=== PATIENT | male | born 1990 | race Caucasian/White ===

== ENCOUNTER 2017-11-24 18:29 | Inpatient (IN) | payer OTHER, SELFPAY ==
[2017-11-24] MEDS ORDERED: Morphine 4 MG/ML VIAL ONE ×2 (18:48→21:45)
[2017-11-24] MEDS ORDERED: Ondansetron HCl/PF 4 MG/2 ML Vial ONE ×2 (18:49→20:47)
[2017-11-24] MEDS ORDERED: Ketorolac Tromethamine 30 MG/ML VIAL ONE (18:49)
[2017-11-24 19:15] LABS: Hemoglobin 13.3 g/dL (14.0-18.0); Mean Corpuscular HGB CONC 36.2 g/dL (32.0-36.0); Mean Corpuscular Hemoglobin 31.6 pg (27.0-31.0); Mean Corpuscular Volume 87.4 fL (78.0-98.0); Mean Platelet Volume 6.9 fL (7.4-10.4); Platelet Count 237 thou/uL (130-400); Red Blood Cell (RBC) Count 4.19 mill/uL (4.70-6.10); White Blood Cell (WBC) Count 2.9 thou/uL (4.8-10.8)
[2017-11-24 19:34] LABS: ALT (SGPT) 19 U/L (8-55); AST (SGOT) 30 U/L (5-34); Albumin 4.4 g/dL (3.5-5.0); Alkaline Phosphatase 68 U/L (40-150); Anion Gap 17 mmol/L (10-20); BUN (Urea Nitrogen) 14 mg/dL (8.9-20.6); Bilirubin, Total 1.3 mg/dL (0.2-1.2); CK (CPK) 311 U/L (30-200); Calc. Creatinine Clearance 0 mL/min (70-130); Calcium 9.5 mg/dL (7.8-10.44); Carbon Dioxide 19 mmol/L (22-29); Chloride 105 mmol/L (98-107); Estimated GFR-MDRD 84; Globulin 2.4 g/dL (2.4-3.5); Glucose 89 mg/dL (70-105); Potassium 3.5 mmol/L (3.5-5.1); Protein, Total 6.8 g/dL (6.0-8.3); Sodium 137 mmol/L (136-145)
[2017-11-24 19:44] LABS: Band 4 % (5-11); Lymphocytes 5 % (21-51); MDiff Complete? YES; Monocytes 3 % (0-10); Neutrophil 88 % (42-75); PLT Morphology Comment Appears Adequate
[2017-11-24 21:34] LABS: Bilirubin Negative (Negative); Blood, Urine Negative (Negative); Clarity CLEAR (Clear); Glucose, Urine (Dipstick) Negative (Negative); Leukocyte Negative (Negative); Nitrite Negative (Negative); Protein, Urine (Dipstick) Negative (Neg-Trace); Urobilinogen 0.2 mg/dL (0.2-1.0); pH, Urine 5.5 (5.0-9.0)
--- NOTE | 2017-11-24 21:41 | RAD ---
CHEST ONE VIEW: HISTORY: Fever. COMPARISON: 04/17/2013 FINDINGS: Normal cardiac silhouette. Pulmonary vessels and hilum are normal. Costophrenic angles are clear. No mass. No consolidation. No pneumothorax or osseous abnormalities. IMPRESSION: No acute cardiopulmonary process. POS: [facility]
[2017-11-24 21:54] LABS: Amphetamine Detected (NotDetected); Barbiturates Screen Not Detected (NotDetected); Benzodiazepine Screen Detected (NotDetected); Cocaine Metabolite Screen Not Detected (NotDetected); Medtox Control Line Valid? VALID (VALID); Medtox Reader # READER 1; Methadone Not Detected (NotDetected); Methamphetamine Not Detected (NotDetected); Opiate Screen Detected (NotDetected); Oxycodone Screen Not Detected (NotDetected); Phencyclidine (PCP) Not Detected (NotDetected); THC/Cannabinoid Screen Not Detected (NotDetected); Tricyclic Screen Not Detected (NotDetected)
--- NOTE | 2017-11-24 22:05 | CT ---
CT ABDOMEN AND PELVIS WITHOUT CONTRAST: HISTORY: Flank pain. Fever. COMPARISON: CT abdomen and pelvis from 2012. FINDINGS: The lung bases are clear. No pericardial effusion. The appendix is visualized and has some inspissated debris. No evidence of appendicitis. The aortoiliac contour is nonaneurysmal. No nephroureterolithiasis or hydroureteronephrosis. No sec ondary evidence of a recently passed stone. No free intraperitoneal gas or fluid. The spleen is unremarkable. The pancreas is unremarkable, given its noncontrast appearance. No ronald opathy. No acute osseous abnormality. The skeleton is unremarkable. There appear to be bilateral clips halima g the spermatic cords. IMPRESSION: 1. No nephroureterolithiasis or hydroureteronephrosis. No secondary evidence of any recently passed stone. 2. Inspissated debris within the appendix, which is otherwise normal. No evidence of appendicitis. 3. No acute inflammatory process within the abdomen or pelvis. POS: [facility]
[2017-11-24 22:10] LABS: Lactic Acid 2.2 mmol/L (0.5-2.2)
[2017-11-24] MEDS ORDERED: Acetaminophen 500 MG TAB ONE (22:36)
[2017-11-24 23:19] LABS: Lactic Acid 2.7 mmol/L (0.5-2.2)
[2017-11-24] MEDS ORDERED: Piperacillin/Tazobactam 4.5 GM VIAL ONE (23:32)
[2017-11-24] MEDS ORDERED: Fentanyl 100 MCG/2 ML VIAL ONE (23:35)
[2017-11-25] MEDS ORDERED: Ondansetron HCl/PF 4 MG/2 ML Vial IVP PRN (01:00)
[2017-11-25] MEDS ORDERED: Ondansetron ODT 4 MG TAB SL PRN (01:00)
[2017-11-25 01:20] VITALS: BMI 24.8
[2017-11-25] MEDS: Acetaminophen 325 MG TAB PO PRN ×2 (02:27→07:35)
[2017-11-25] MEDS: Sodium Chloride 0.9% 1,000 ML IV SCH ×2 (02:28→08:31)
[2017-11-25] MEDS: Piperacillin/Tazobactam 3.375 GM in Sodium Chloride 0.9% 100 ML IVPB SCH ×3 (05:45→18:19)
[2017-11-25] MEDS: Vancomycin HCl 1.5 GM in Sodium Chloride 0.9% 250 ML 300 ML IVPB SCH ×2 (08:30→16:12)
[2017-11-25] MEDS: Ibuprofen 600 MG TAB PO PRN ×2 (09:54→16:12)
[2017-11-25 12:27] LABS: HIV (1/2) Antibody/Antigen Non-Reactive (NonReactive); HIV 1/2 INDEX 0.17 S/CO (<1.00)
--- NOTE | 2017-11-25 16:33 | HP ---
CHIEF COMPLAINT: Abdominal pain, fever. HISTORY OF PRESENT ILLNESS: The patient reported having some urethral type discharge starting severa l years ago. This has persisted and ultimately became significantly worse a couple of weeks ago. Du ring that time, he also started experiencing some fevers and chills. He reports that his pain was in creased with constipation and improved with more frequent intercourse. The patient is having signifi cant abdominal pain, which is in the lower pelvis, now radiating to the back and also in the perineum . The patient denies having unprotected sex other than with his . 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 PAST MEDICAL HISTORY: Notable for asthma, ADHD. PAST SURGICAL HISTORY: Notable for vasectomy. FAMILY HISTORY: Both parents have hypertension and diabetes. SOCIAL HISTORY: Patient uses one can of snuff every 3 days. He also has a history of significant al cohol use, but quit a couple of years ago, now is only intermittent. REVIEW OF SYSTEMS: Notable for those things in the history of present illness. PHYSICAL EXAMINATION: VITAL SIGNS: Temperature 98.4, pulse 103, respirations 20, O2 sat 98% on room air, BP 90/60. GENERAL APPEARANCE: Age appropriate male. He appears generally uncomfortable. He is awake and aler t. HEENT: PERRL. No OP lesions. NECK: Supple and symmetric without lymphadenopathy. CARDIOVASCULAR: Regular rate and rhythm without murmurs. LUNGS: Clear to auscultation bilaterally. ABDOMEN: Soft, nondistended, positive bowel sounds. He is tender throughout the lower abdomen and p fernando. Bladder is not specifically palpable. EXTREMITIES: Warm and dry. GENITOURINARY: The patient has normal external male genitalia. His right testicle is slightly tende r. His digital rectal exam is notable for a very boggy, very tender, somewhat enlarged prostate. LABORATORY DATA: White count 2.9, hemoglobin 13.3, and platelets 237. He has 88% neutrophils, 4% ba nds, and 5% lymphocytes. Chemistry is notable for CO2 of 19, lactic acid 2.4, total bilirubin is 1.3 , BUN 14, creatinine 1.04, CK 311. Urinalysis notable for trace ketones. Urine drug screen positive for opiates, amphetamines and benzodiazepines. Chest x-ray shows no acute cardiopulmonary process. CT abdomen and pelvis reveals no nephroureterolithiasis or hydroureteronephrosis. There is inspissa lay debris within the appendix, otherwise normal. No inflammatory process within the abdomen or pelv is. I discussed the case specifically with the radiologist and there does not appear to be any signi ficant evidence of inflammation or abscess of the prostate. ASSESSMENT AND PLAN: 1. The patient appears to have acute on chronic prostatitis. He has been having urethral discharge now with significant pelvic pain, some bladder outlet obstruction and tender prostate on exam. The p atient is on vancomycin and Zosyn. We will consult Urology. He is requiring intermittent in and out catheterization because of the obstruction. We will check an HIV screen and GC and chlamydia screen . 2. Mild leukopenia. We will check an HIV screen. The patient is not neutropenic. 3. Elevated lactic acid. The patient's blood pressure is borderline. This more likely related to t he pain medications that he has been receiving rather than a true sepsis picture, although he likely technically meets the definition. We will go ahead and give him aggressive hydration as has been sandy mathis, although he is reluctant to receive it because of the bladder obstruction.
[2017-11-25] MEDS ORDERED: diphenhydrAMINE 25 MG CAP PO PRN (19:16)
--- NOTE | 2017-11-26 04:29 | CON ---
DATE OF CONSULTATION: 11/25/2017 REASON FOR CONSULTATION: Urinary retention. HISTORY: Mr. Parry is a 27-year-old gentleman who presented to the emergency room on 11/24/2017 with abdominal pain, difficulty voiding. He was catheterized in the emergency room for 1000 mL of urine. His urologic issues date back to his teenage years. He states that he has had intermittent problem s urinating since that time. He has never required a catheter in the past. He states that his urina ry symptoms had worsened approximately 4 years ago after a vasectomy. He states that approximately o nce a week, he will have acute onset of significant perineal or urethral pain. It will usually last 15 minutes and resolved. He also has intermittent discharge from the urethra. This particularly wor se if he has not had intercourse. He is able to express discharge from the urethra. He denies any g ross hematuria. He has had no prior urologic surgeries. He denies fevers or chills. PAST MEDICAL HISTORY: Asthma, ADHD. ALLERGIES: Vasectomy. 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 He is a nonsmoker, but does use snuff. He drinks alcohol on a social basis. REVIEW OF SYSTEMS: Respiratory: No shortness of breath. Cardiovascular: No chest pain or palpitat ions. Gastrointestinal: Denies chronic constipation, diarrhea. Genitourinary: Please see history of present illness. PHYSICAL EXAMINATION: GENERAL: He is awake, alert, is in no distress at this time. HEENT: Normocephalic, atraumatic. NECK: Supple without masses. CHEST: Clear to auscultation. CARDIOVASCULAR: Regular rate and rhythm. ABDOMEN: Soft, nontender, no palpable masses. Liver and spleen are palpable. No abdominal tenderne ss. GENITOURINARY: No penile lesions seen. Urethral meatus appears normal. No scrotal lesions. Testic les palpably normal bilaterally. DIGITAL RECTAL EXAMINATION: Refused by patient. CATHETERIZATION: Patient is ordered to perform intermittent catheterization drained over 500 mL of u rine. LABORATORY DATA: White blood cell count 2.9, hemoglobin 13.3, hematocrit 36. Chemistry: CO2 of 19, creatinine 1.04. Urinalysis trace ketones, otherwise negative for red cells and white cells. Urine culture negative. CT scan demonstrates normal upper tracts without hydronephrosis or stones. No ev idence of prostatic abscess or other genitourinary abnormalities. IMPRESSION: Mr. Parry is a 27-year-old gentleman with urinary retention. He has no convincing evide nce of prostatitis in that he is afebrile, his urinalysis is clear without red cells or white cells o r bacteria. His white blood cell count is low and not high and his symptoms have been off and on for months. He could have a chronic prostatitis, although I would also suspect at least an abnormal uri nalysis. In any regards, he is in retention and that time I am going to perform intermittent cathete rization. Flomax should be initiated and I am in agreement with antibiotic therapy, especially while he is using intermittent catheterization. RECOMMENDATIONS: 1. Begin Flomax. 2. Intermittent catheterization, and so urinary symptoms are normal. 3. Antibiotic therapy (Cipro or Bactrim) for 6 weeks at the time of discharge.
[2017-11-26 07:38] LABS: Vancomycin, Trough 7.4 ug/mL
[2017-11-26] MEDS: Acetaminophen 325 MG TAB PO PRN ×2 (09:18→16:27)
[2017-11-26] MEDS: Ibuprofen 600 MG TAB PO PRN (17:37)
[2017-11-26 17:40] VITALS: BP 127/82; TEMP 98.5
[2017-11-26] MEDS ORDERED: Tamsulosin HCl 0.4 MG CAP PO SCH (21:00)
[2017-11-27 23:26] LABS: Chlamydia by PCR Not Detected (NotDetected); GC by PCR Not Detected (NotDetected)
== END 2017-11-26 17:50 | disposition home or self-care (01) | DRG 700 ==
LOC: ERS 18:29 → T4-A 11-25 00:48
PROVIDERS: ADMIT Hospitalist; ATTEND Hospitalist
DX: N32.0 Bladder-neck obstruction (principal); N41.1 Chronic prostatitis; D72.819 Decreased white blood cell count, unspecified; Z87.442 Personal history of urinary calculi; F17.290 Nicotine dependence, other tobacco product, uncomplicated; J45.909 Unspecified asthma, uncomplicated; F90.9 Attention-deficit hyperactivity disorder, unspecified type; Z98.52 Vasectomy status; R33.9 Retention of urine, unspecified
CPT/HCPCS: 36415; 51702; 71045; 74176; 80053; 80202; 80306; 81003; 82550; 83605; 85025; 87040; 87086; 87389; 87491; 87591; 93005; 96361; 96365; 96375; 96376; J1885; J1956; J2270; J2405; J2543; J3010; J3370; J7050

== ENCOUNTER 2018-03-22 22:06 | Emergency (ER) | payer SELFPAY ==
[~2018-03-22 22:06] MED LIST: ISOVUE-370 76%-LOCM 1 ML ONE
[2018-03-22] MEDS ORDERED: Acetaminophen 500 MG TAB ONE (22:39)
[2018-03-22] MEDS ORDERED: Ciprofloxacin 500 MG TAB ONE (22:39)
[2018-03-22] MEDS ORDERED: Ibuprofen 800 MG TAB ONE (22:39)
[2018-03-22] MEDS ORDERED: Tamsulosin HCl 0.4 MG CAP PO SCH (22:45)
[2018-03-22 22:51] LABS: Bilirubin Negative (Negative); Blood, Urine Negative (Negative); Clarity CLEAR (Clear); Glucose, Urine (Dipstick) Negative (Negative); Leukocyte Negative (Negative); Nitrite Negative (Negative); Protein, Urine (Dipstick) Negative (Neg-Trace); Specific Gravity, Urine 1.024 (1.002-1.036); Urobilinogen 0.2 mg/dL (0.2-1.0)
[2018-03-22 23:08] LABS: #Eosinphils 0.1 thou/uL (0.0-0.7); #Lymphocytes 0.7 thou/uL (1.20-3.40); #Monocytes 0.5 thou/uL (0.11-0.59); #Neutrophils 7.6 thou/uL (1.40-6.50); %Basophils 0.3 % (0.0-1.0); %Eosinophils 0.8 % (0.0-10.0); %Lymphocytes 7.9 % (21.0-51.0); %Monocytes 5.5 % (0.0-10.0); %Neutrophils 85.5 % (42.0-75.0); Hemoglobin 14.4 g/dL (14.0-18.0); Mean Corpuscular HGB CONC 33.5 g/dL (32.0-36.0); Mean Corpuscular Hemoglobin 30.1 pg (27.0-31.0); Mean Platelet Volume 7.2 fL (7.4-10.4); Platelet Count 234 thou/uL (130-400); RBC Distribution Width 11.2 % (11.5-14.5); Red Blood Cell (RBC) Count 4.77 mill/uL (4.70-6.10); White Blood Cell (WBC) Count 8.9 thou/uL (4.8-10.8)
[2018-03-22] MEDS ORDERED: Ondansetron ODT 4 MG TAB ONE (23:21)
[2018-03-22 23:28] LABS: ALT (SGPT) 13 U/L (8-55); AST (SGOT) 13 U/L (5-34); Albumin 3.9 g/dL (3.5-5.0); Alkaline Phosphatase 74 U/L (40-150); Anion Gap 10 mmol/L (10-20); BUN (Urea Nitrogen) 18 mg/dL (8.9-20.6); Bilirubin, Total 0.3 mg/dL (0.2-1.2); Calc. Creatinine Clearance 0 mL/min (70-130); Calcium 9.1 mg/dL (7.8-10.44); Carbon Dioxide 24 mmol/L (22-29); Chloride 107 mmol/L (98-107); Estimated GFR-MDRD 89; Globulin 2.3 g/dL (2.4-3.5); Glucose 92 mg/dL (70-105); Lipase 33 U/L (8-78); Potassium 3.9 mmol/L (3.5-5.1); Protein, Total 6.2 g/dL (6.0-8.3); Sodium 137 mmol/L (136-145)
--- NOTE | 2018-03-23 08:31 | CT ---
PRELIMINARY REPORT/[facility]/EMERGENTY AFTER-HOURS PROCEDURE CT Abdomen and Pelvis With Intravenous Contrast EXAM DATE/TIME: 03/23/2018 12:04 AM CLINICAL HISTORY: 28 years old, male; Pain; Abdominal pain; Localized; Lower; Patient HX: Er 8; M28 presented to ed C/O abdominal pain, fever, chills, aches, difficulty urinating, and prostate pain. PT reports previous H X of prostatitis a couple months ago and notes that the pain and symptoms are similar. PT denies new sexual partners. PT denies any penile d/c. PT localizes abdominal pain to around his kidneys, but the anterior aspect. PT denies hiv HX TECHNIQUE: Axial computed tomography images of the abdomen and pelvis with intravenous contrast. Coronal reforma tted images were created and reviewed. COMPARISON: No relevant prior studies available. FINDINGS: Lower thorax: No acute findings. ABDOMEN: Liver: Normal. No mass. Gallbladder and bile ducts: Normal. No calcified stones. No ductal dilation. Pancreas: Normal. No ductal dilation. Spleen: Normal. No splenomegaly. Adrenals: Normal. No mass. Kidneys and ureters: Normal. No hydronephrosis. Stomach and bowel: No bowel wall thickening or intestinal obstruction. Appendix: Normal appendix. PELVIS: Bladder: Unremarkable as visualized. Reproductive: Unremarkable as visualized. ABDOMEN and PELVIS: Intraperitoneal space: Normal. No free air. No significant fluid collection. Bones/joints: No acute fracture. No dislocation. Soft tissues: Unremarkable. Vasculature: Normal. No abdominal aortic aneurysm. Lymph nodes: Normal. No enlarged lymph nodes. IMPRESSION: No acute findings. Thank you for allowing us to participate in the care of your patient. Dictated and Authenticated by: Rupert Chacon MD 03/23/2018 12:20 AM Central Time ([place] & [place]) FINAL REPORT CT ABDOMEN AND PELVIS: I agree with the preliminary report given by Dr. Rupert Chacon of [facility]. POS: [facility]
== END 2018-03-23 01:11 | disposition home or self-care (01) ==
LOC: ERS 22:06
DX: N41.9 Inflammatory disease of prostate, unspecified (principal); F41.9 Anxiety disorder, unspecified; F32.9 Major depressive disorder, single episode, unspecified; F17.220 Nicotine dependence, chewing tobacco, uncomplicated; Z79.899 Other long term (current) drug therapy
CPT/HCPCS: 36415; 74177; 80053; 81003; 83690; 85025; 87086; 87804; Q0162

== ENCOUNTER 2018-06-01 14:13 | Observation (INO) | payer SELFPAY ==
[2018-06-01 14:41] LABS: #Basophils 0.1 thou/uL (0.0-0.2); #Eosinphils 0.1 thou/uL (0.0-0.7); #Lymphocytes 2.4 thou/uL (1.20-3.40); #Neutrophils 8.8 thou/uL (1.40-6.50); %Basophils 0.7 % (0.0-1.0); %Eosinophils 0.7 % (0.0-10.0); %Lymphocytes 19.5 % (21.0-51.0); %Monocytes 7.8 % (0.0-10.0); %Neutrophils 71.4 % (42.0-75.0); Mean Corpuscular HGB CONC 32.5 g/dL (32.0-36.0); Mean Corpuscular Hemoglobin 29.7 pg (27.0-31.0); Mean Corpuscular Volume 91.3 fL (78.0-98.0); Mean Platelet Volume 6.8 fL (7.4-10.4); Platelet Count 312 thou/uL (130-400); RBC Distribution Width 11.3 % (11.5-14.5); Red Blood Cell (RBC) Count 5.38 mill/uL (4.70-6.10); White Blood Cell (WBC) Count 12.3 thou/uL (4.8-10.8)
--- NOTE | 2018-06-01 15:06 | RAD ---
PORTABLE CHEST 1 VIEW: Date: 06/01/18 Time: 1434 hours HISTORY: Inability to urinate. Prostatitis. Sepsis. FINDINGS: Comparison made with exam of 11/24/17. The heart size is normal. The lungs are well expanded without focal areas of consolidation, pneumotho rax, or pleural effusions. IMPRESSION: No acute process. POS: [facility]
[2018-06-01 15:08] LABS: ALT (SGPT) 15 U/L (8-55); AST (SGOT) 18 U/L (5-34); Alkaline Phosphatase 71 U/L (40-150); Anion Gap 19 mmol/L (10-20); BUN (Urea Nitrogen) 10 mg/dL (8.9-20.6); Bilirubin, Total 0.4 mg/dL (0.2-1.2); Calc. Creatinine Clearance 0 mL/min (70-130); Calcium 9.6 mg/dL (7.8-10.44); Carbon Dioxide 19 mmol/L (22-29); Chloride 107 mmol/L (98-107); Estimated GFR-MDRD 87; Globulin 2.7 g/dL (2.4-3.5); Glucose 97 mg/dL (70-105); Potassium 3.9 mmol/L (3.5-5.1); Protein, Total 7.7 g/dL (6.0-8.3); Sodium 141 mmol/L (136-145)
[2018-06-01] MEDS ORDERED: Morphine 4 MG/ML VIAL ONE ×2 (15:15→17:18)
[2018-06-01] MEDS ORDERED: Ondansetron PF 4 MG/2 ML Vial ONE (15:15)
[2018-06-01] MEDS ORDERED: Lidocaine 2% PF 100 mg/5 ml Syringe ONE ×2 (15:30→15:34)
[2018-06-01] MEDS ORDERED: Lidocaine 4% Topical Sol 50 ML BOT ONE (15:32)
[2018-06-01] MEDS ORDERED: Lidocaine Viscous Sol 2% 15 ml UD Cup ONE ×3 (15:33→20:55)
[2018-06-01] MEDS ORDERED: cefTRIAXone\\ROCEPHIN 1 GM VIAL ONE (15:58)
[2018-06-01] MEDS ORDERED: Levofloxacin 500 mg/D5W 100 ml Premix Bag ONE (15:58)
[2018-06-01] MEDS ORDERED: cefTRIAXone\\ROCEPHIN 2 GM VIAL ONE (15:59)
[2018-06-01 16:05] LABS: Bilirubin Negative (Negative); Blood, Urine Negative (Negative); Clarity CLEAR (Clear); Glucose, Urine (Dipstick) Negative (Negative); Leukocyte Negative (Negative); Nitrite Negative (Negative); Protein, Urine (Dipstick) Negative (Neg-Trace); Specific Gravity, Urine 1.005 (1.002-1.036); Urobilinogen 0.2 mg/dL (0.2-1.0); pH, Urine 5.5 (5.0-9.0)
[2018-06-01 18:53] LABS: Lactic Acid 2.1 mmol/L (0.5-2.2)
--- NOTE | 2018-06-01 19:05 | CT ---
CT ABDOMEN AND PELVIS NONCONTRAST: INDICATIONS: History of chronic prostatitis with pain, nausea, and weakness. COMPARISON: 03/23/2018 FINDINGS: There is moderate distention of the urinary bladder with a minute focus of intraluminal, dependent ai r. No urolithiasis or hydroureteronephrosis. There is limited evaluation of the solid abdominal org ans, bowel, lymph nodes, and vasculature, on the basis of the noncontrast technique. There are bilat eral metallic clips of the inguinal regions, indicating a prior vasectomy. Correlate for surgical hi story. No lobar consolidation of the imaged lung base. The osseous structures are intact. IMPRESSION: 1. Moderate distention of the urinary bladder. There is a tiny focus of dependent air density withi n the urinary bladder. Correlate for history of recent instrumentation. Otherwise, gas-producing or ganism cannot be excluded. 2. No urolithiasis or hydroureteronephrosis. POS: [facility]
[2018-06-01] MEDS ORDERED: Oxybutynin 5 MG TAB PO SCH (21:00)
[2018-06-01] MEDS ORDERED: Senokot S 8.6-50 MG TAB PO PRN (21:41)
[2018-06-01] MEDS ORDERED: Acetaminophen 325 MG TAB PO PRN (21:41)
[2018-06-01] MEDS ORDERED: Bisacodyl 5 MG TAB PO PRN (21:41)
[2018-06-01] MEDS ORDERED: Sodium Chloride 0.9% 1,000 ML IV SCH (21:45)
[2018-06-01] MEDS ORDERED: Acetaminophen 325 MG TAB ONE (22:13)
[2018-06-01] MEDS ORDERED: B & O PR PRN (22:52)
--- NOTE | 2018-06-01 22:55 | ULT ---
BILATERAL TESTICULAR ULTRASOUND WITH GRAYSCALE AND DOPPLER COLORFLOW IMAGING AND SPECTRAL ANALYSIS: INDICATIONS: Bilateral testicular pain. Evaluate for torsion. FINDINGS: There is appropriate flow demonstrated to each testis, without torsion. No intratesticular mass. Th ere is a mild left hydrocele. There are small epididymal cysts bilaterally. Prominent volume of eac h epididymis, notably at the body and tail region, is documented, which can be seen in the setting of epididymitis. Recommend clinical correlation in this regard. IMPRESSION: 1. No evidence of testicular torsion or intratesticular mass. 2. Prominence of the epididymal volume bilaterally. Correlate for evidence of epididymitis. POS: [facility]
[2018-06-01] MEDS ORDERED: Morphine 4 MG/ML VIAL SLOW IVP PRN (23:37)
[2018-06-02 01:30] VITALS: BMI 23.7
--- NOTE | 2018-06-02 03:37 | HP ---
CHIEF COMPLAINT: Spasms. HISTORY OF PRESENT ILLNESS: The patient is a 28-year-old male with a history of chronic prostatitis, who presented to the hospital with complaints of significant urethral spasms. The patient states that a few years ago he had vasectomy and since then he has been having issues with spasms. The patient was actually seen last time in December of 2017 for similar symptoms and at that time, he had significant abdominal pain consistent with this time that he had significant abdominal pain. The patient states that his pain comes and goes. He has been having this pain for the past 2 days. No fevers or chills. The patient states that he has noticed that his pain normally gets exacerbated when he is constipated and also when he has not had intercourse for about 7-10 days. The patient is . Denies any discharge. PAST MEDICAL HISTORY: Notable for asthma and ADHD. PAST SURGICAL HISTORY: Vasectomy. FAMILY HISTORY: Both parents have hypertension and diabetes. SOCIAL HISTORY: The patient uses one can of snuff every 3 days. He has a history of significant alcohol use. However, he quit a few years ago, now only drinks socially. No drug use. He is a full code. REVIEW OF SYSTEMS: All negative except the ones mentioned above in the HPI. PHYSICAL EXAMINATION: VITAL SIGNS: As of the following; his temperature of 98.6, pulse 94, 18 respirations, blood pressure 141/77. GENERAL: He is awake, alert, and oriented x3. He appears in severe pain. HEENT: Normocephalic and atraumatic. No lymphadenopathy noted. CV: S1, S2 present. No murmurs, rubs, or gallops. There is no costovertebral tenderness noted on palpation. LUNGS: Clear to auscultation. No rhonchi or wheezes noted. ABDOMEN: Soft and nontender. Bowel sounds are present x2. He does have significant pain around his suprapubic area. NEUROVASCULAR: No focal deficits noted. SKIN: No cuts, lesions, or bruises noted. However, he does have several tattoos. LABORATORY RESULTS: As of the following; WBC of 12.3, hemoglobin of 16.0, hematocrit of 49.1, platelets of 312. Chemistry; sodium of 141, potassium of 3.9, BUN of 10, creatinine of 1.01. His lactic acid was 3.8, repeat was 2.1. His urine this time was clearly normal and also he did have studies, chlamydia and gonorrhea, which are pending. He also had CT of abdomen and pelvis which appeared to be just indicative of some moderate distention of the urinary bladder, just there is a tiny focus of dependent air density within the urinary bladder, however, otherwise it appeared to be normal. He also had a testicular ultrasound which essentially had prominence of epididymal volume bilaterally, indicated correlate with evidence of epididymitis. No testicular torsion was noted. ASSESSMENT AND PLAN: The patient is a very pleasant 28-year-old male who comes to the hospital with complaints of significant pain and spasms. 1. Chronic prostatitis. The patient's urine is completely normal. He has no blood in his urine either. No wbc's. He does have a mildly elevated lactic acid and has mild elevated WBC. No fevers. I do not see any signs of infection in this patient. However, his pain is out of proportion. He states that pain medication and also antispasm medication are helping him. We did bladder scan him twice. He did have significant urinary retention. At this time, a Posada was placed in this patient. I will go ahead and consult Urology since he was supposed to follow up with Urology, however, could not afford it because he does not have insurance. I might just give him a dose of antibiotics. However, I do not think he needs antibiotics since I do not see any overt signs of infectious process in this. The patient did state that he has noticed that when he is constipated and also if he has not had intercourse for about 7-10 days, the patient starts getting worse with spasms. I have recommended the patient to take stool softeners and also recommended frequent intercourse with the patient's to reduce the spasms to see if this would help this patient. 2. Mild leukocytosis. I think this is just reactive. We will continue to monitor. 3. Deep venous thrombosis prophylaxis. We will put the patient on SCDs and/or heparin subcu. Job ID: [id number]
[2018-06-02 03:42] LABS: #Eosinphils 0.1 thou/uL (0.0-0.7); #Lymphocytes 1.1 thou/uL (1.20-3.40); #Monocytes 0.6 thou/uL (0.11-0.59); %Basophils 0.3 % (0.0-1.0); %Eosinophils 1.3 % (0.0-10.0); %Lymphocytes 12.6 % (21.0-51.0); %Monocytes 7.2 % (0.0-10.0); %Neutrophils 78.6 % (42.0-75.0); Hemoglobin 13.2 g/dL (14.0-18.0); Mean Corpuscular HGB CONC 33.4 g/dL (32.0-36.0); Mean Corpuscular Hemoglobin 30.8 pg (27.0-31.0); Mean Platelet Volume 6.8 fL (7.4-10.4); Platelet Count 216 thou/uL (130-400); RBC Distribution Width 11.4 % (11.5-14.5); Red Blood Cell (RBC) Count 4.29 mill/uL (4.70-6.10); White Blood Cell (WBC) Count 8.9 thou/uL (4.8-10.8)
[2018-06-02 03:58] LABS: Anion Gap 11 mmol/L (10-20); BUN (Urea Nitrogen) 9 mg/dL (8.9-20.6); Calc. Creatinine Clearance 137 mL/min (70-130); Calcium 8.7 mg/dL (7.8-10.44); Carbon Dioxide 24 mmol/L (22-29); Chloride 109 mmol/L (98-107); Estimated GFR-MDRD Greater than 90; Glucose 131 mg/dL (70-105); Potassium 4.3 mmol/L (3.5-5.1); Sodium 140 mmol/L (136-145)
[2018-06-02] MEDS ORDERED: Acetaminophen 325 MG TAB ONE (04:37)
[2018-06-02] MEDS ORDERED: Ciprofloxacin 500 MG TAB ONE (08:02)
[2018-06-02 08:27] VITALS: BP 136/87; TEMP 98
[2018-06-02] MEDS ORDERED: Oxybutynin 5 MG TAB PO SCH (09:00)
[2018-06-02] MEDS ORDERED: Heparin 5,000 UNITS/ML VIAL SC SCH (09:00)
[2018-06-02] MEDS ORDERED: AMPHETAMINE PO SCH (09:00)
[2018-06-02] MEDS ORDERED: DEXTROAMPHETAMINE PO SCH (09:00)
[2018-06-02] MEDS ORDERED: Senokot S 8.6-50 MG TAB PO SCH (09:00)
[2018-06-02] MEDS ORDERED: Polyethylene Glycol 3350 17 GM Packet PO SCH (09:00)
[2018-06-02] MEDS ORDERED: Tamsulosin HCl 0.4 MG CAP PO SCH (21:00)
--- NOTE | 2018-06-03 14:05 | DIS ---
DATE OF ADMISSION: 06/01/2018 DATE OF DISCHARGE: 06/02/2018 PRIMARY CARE PROVIDER: Dr. Luis Angel Burt. The patient left against medical advice on June 02, 2018. HOSPITAL COURSE: Mr. Parry is a 28-year-old gentleman, who was admitted to [facility] on June 01, 2018, for prostatitis. Please refer to Dr. Sam's history and physical note dated June 01, 2018 for further details. He was started on intravenous antibiotics. On the morning of June 02, Mr. Parry said he felt well. He did not wish to stay in the hospital. He received a dose of oral ciprofloxacin and left against medical advise. He told the staff that he will follow up with his primary care provider. Please feel free to contact me with any questions or concerns. Job ID: [id number]
[2018-06-07 18:07] LABS: Chlamydia trachomatis by NAA Negative (Negative)
== END 2018-06-02 08:22 | disposition left against medical advice (07) ==
LOC: ERS 14:13 → ERHOLD 19:07 → UNDODEPER 06-04 15:48
PROVIDERS: ADMIT Family Medicine; ATTEND Family Medicine
DX: N41.1 Chronic prostatitis (principal); N35.919 Unspecified urethral stricture, male, unspecified site; J45.909 Unspecified asthma, uncomplicated; F90.9 Attention-deficit hyperactivity disorder, unspecified type; F17.290 Nicotine dependence, other tobacco product, uncomplicated; D72.829 Elevated white blood cell count, unspecified; Z53.21 Procedure and treatment not carried out due to patient leaving prior to being seen by health care provider; Z79.899 Other long term (current) drug therapy; Z88.1 Allergy status to other antibiotic agents
CPT/HCPCS: 36415; 51703; 71045; 74176; 76870; 80048; 80053; 81003; 83605; 85025; 87040; 87491; 87591; 93005; 93976; 96361; 96365; 96375; 96376; G0378; J0696; J0744; J1956; J2001; J2270; J2405

== ENCOUNTER 2018-07-27 22:43 | Inpatient (IN) | payer OTHER, SELFPAY ==
[2018-07-27 23:52] LABS: #Basophils 0.1 thou/uL (0.0-0.2); #Eosinphils 0.1 thou/uL (0.0-0.7); #Lymphocytes 2.3 thou/uL (1.20-3.40); #Neutrophils 7.6 thou/uL (1.40-6.50); %Basophils 1.1 % (0.0-1.0); %Eosinophils 1.2 % (0.0-10.0); %Lymphocytes 20.9 % (21.0-51.0); %Monocytes 8.6 % (0.0-10.0); %Neutrophils 68.2 % (42.0-75.0); Hemoglobin 16.4 g/dL (14.0-18.0); Mean Corpuscular HGB CONC 34.6 g/dL (32.0-36.0); Mean Corpuscular Hemoglobin 31.2 pg (27.0-31.0); Mean Corpuscular Volume 90.3 fL (78.0-98.0); Mean Platelet Volume 7.2 fL (7.4-10.4); Platelet Count 316 thou/uL (130-400); Red Blood Cell (RBC) Count 5.26 mill/uL (4.70-6.10); White Blood Cell (WBC) Count 11.1 thou/uL (4.8-10.8)
[2018-07-28 00:12] LABS: ALT (SGPT) 34 U/L (8-55); AST (SGOT) 22 U/L (5-34); Alkaline Phosphatase 84 U/L (40-150); Anion Gap 13 mmol/L (10-20); BUN (Urea Nitrogen) 10 mg/dL (8.9-20.6); Bilirubin, Total 0.3 mg/dL (0.2-1.2); Calc. Creatinine Clearance 0 mL/min (70-130); Calcium 10.3 mg/dL (7.8-10.44); Carbon Dioxide 27 mmol/L (22-29); Chloride 105 mmol/L (98-107); Estimated GFR-MDRD 86; Globulin 2.9 g/dL (2.4-3.5); Glucose 93 mg/dL (70-105); Potassium 4.3 mmol/L (3.5-5.1); Protein, Total 7.9 g/dL (6.0-8.3); Sodium 141 mmol/L (136-145)
[2018-07-28] MEDS ORDERED: Ketorolac Tromethamine 30 MG/ML VIAL ONE (00:40)
[2018-07-28] MEDS ORDERED: Morphine 4 MG/ML VIAL ONE (00:40)
[2018-07-28] MEDS ORDERED: Tamsulosin HCl 0.4 MG CAP PO SCH ×2 (00:45→21:00)
[2018-07-28] MEDS ORDERED: Oxybutynin 5 MG TAB PO SCH (00:45)
[2018-07-28 02:17] LABS: Bilirubin Negative (Negative); Blood, Urine Negative (Negative); Clarity CLEAR (Clear); Glucose, Urine (Dipstick) Negative (Negative); Leukocyte Negative (Negative); Nitrite Negative (Negative); Protein, Urine (Dipstick) Negative (Neg-Trace); Specific Gravity, Urine 1.005 (1.002-1.036); Urobilinogen 0.2 mg/dL (0.2-1.0)
[2018-07-28] MEDS ORDERED: Acetaminophen 325 MG TAB PO PRN (02:48)
[2018-07-28] MEDS ORDERED: Ondansetron ODT 4 MG TAB SL PRN (02:48)
[2018-07-28] MEDS ORDERED: Ondansetron PF 4 MG/2 ML Vial IVP PRN ×2 (02:48→05:07)
[2018-07-28] MEDS ORDERED: Oxybutynin 5 MG TAB PO PRN (02:50)
[2018-07-28] MEDS ORDERED: Phenazopyridine HCl 97.5 MG TABLET PO PRN (03:22)
[2018-07-28 04:03] VITALS: BMI 25.3
[2018-07-28] MEDS ORDERED: Ondansetron ODT 4 MG TAB PO PRN (05:07)
--- NOTE | 2018-07-28 05:22 | HP ---
CHIEF COMPLAINT: Burning when he pees for the last 2 days and unable to urinate. HISTORY OF PRESENT ILLNESS: Mr. Parry is a pleasant 28-year-old gentleman who has a history of ADHD as well as asthma. He says that he has had problems with dysuria and problems with urination ever since he had a vasectomy. He has had episodes of "prostatitis" in the past as well. He says that he was in his usual state of health until about 2 days ago when he started having "burning when he pees." He says around 5-6 p.m. the night of admission, he was unable to urinate at all. He also noted some chills and body aches, which started about an hour later. He also had some nausea as well. He was brought to the hospital where they placed a Posada catheter and he had between 90 and 1200 mL of urine out and he is being admitted for urinary retention. REVIEW OF SYSTEMS: All systems were reviewed and are negative except for that mentioned in the history of present illness. PAST MEDICAL HISTORY: Significant for ADHD, asthma, anxiety, and depression. PAST SURGICAL HISTORY: He has had a vasectomy about 5 years ago, cardiac catheterization in 2008, which was negative and also had wisdom teeth removed. ALLERGIES: ZOSYN AND VANCOMYCIN, HE IS NOT SURE WHICH. HE HAD THEM BOTH AT THE SAME TIME AND IT CAUSED A RASH. SOCIAL HISTORY: He is , has 2 children. He is a former smoker. Denies any alcohol use. FAMILY HISTORY: No history of any heritable diseases. CURRENT MEDICATIONS: None. PHYSICAL EXAMINATION: GENERAL: He is alert and oriented. He appears to be in no acute distress. He is well developed and well nourished. VITAL SIGNS: Blood pressure was 135/82, heart rate 77, respiratory rate of 18, temperature is 98.2. HEENT: Pupils are equal, round, and reactive to light. Extraocular muscles are intact. His sclerae anicteric. Throat, there is no erythema, no exudate. NECK: No adenopathy. No bruits. LUNGS: Clear to auscultation. There is no wheezing, no rales, no rhonchi. CARDIOVASCULAR: Normal S1 and S2. There is no S3 or S4. No murmurs, clicks, or rubs. ABDOMEN: Soft. It is nontender and nondistended. Positive for bowel sounds. There is no rebound, no guarding, no organomegaly. EXTREMITIES: There is no clubbing, cyanosis, or edema. NEUROLOGICAL: Grossly nonfocal. LABORATORY RESULTS: Urinalysis is essentially completely negative. White blood cell count 11.1, hemoglobin 16.4, hematocrit is 47.5, and platelet count is 316. Sodium is 141, potassium 4.3, chloride is 105, CO2 is 27, BUN of 10, creatinine 1.02, glucose is 93, calcium is 10.3. ASSESSMENT AND PLAN: 1. This is a 28-year-old gentleman who was brought over to the hospital due to urinary retention. It appears in review of his records, he has had this problem before back in November of 2017. He was seen by Dr. Aguilar who recommended in-and-out catheterization and he was treated empirically for prostatitis at that time. It is also noted that at the time in November, his urine also appeared to be clear as well. Therefore for the urinary retention, we will go ahead and consult Urology once more. It appears as if he is probably just going to need to do intermittent in-and-out catheterizations when this problem arises. He does not appear to be infected at this time. There is no blood in the urine to be suspicious for stones. He did have a CT stone protocol, which was pending. I am going to hold off on antibiotics as there is no evidence of infection and we will basically treat him symptomatically. 2. Attention deficit hyperactivity disorder. It appears as if he is currently not on any medications for this and therefore, we will hold off on restarting anything. Job ID: [id number]
[2018-07-28] MEDS: Sodium Chloride 0.9% 1,000 ML IV SCH ×2 (05:50→08:57)
[2018-07-28] MEDS: Morphine 4 MG/ML VIAL SLOW IVP PRN ×3 (05:58→13:04)
--- NOTE | 2018-07-28 06:57 | CT ---
CT ABDOMEN AND PELVIS NONCONTRAST: RENAL CALCULUS PROTOCOL: INDICATIONS: Abdominal pain. Urinary retention. COMPARISON: 06/01/2018 FINDINGS: No urolithiasis or obstructive uropathy. There is a Posada catheter with decompression of the urinary bladder. The imaged lung bases are clear. There is limited evaluation of the solid abdominal visce ra. Bowel, lymph nodes, and vasculature are on the basis noncontrast imaging. There is moderate dis tention of the gallbladder with slight underlying hyperdensity, incompletely assessed. There is a sw irling of the mesentery of the low abdomen, nonspecific. Osseous structures are intact. IMPRESSION: 1. No urolithiasis or obstructive uropathy. 2. Moderate distention of the gallbladder with relative internal hyperdensity. Correlate clinically and, if necessary, this may be further assessed with gallbladder ultrasound. 3. Nonspecific swirling of the mesenteric structures of the low abdomen. This can be seen in the se tting of an internal hernia. The bowel is incompletely assessed without intravenous or enteric contr ast. Recommend clinical correlation and, as necessary, imaging followup may be obtained. POS: [facility]
[2018-07-28] MEDS ORDERED: Senokot S 8.6-50 MG TAB PO SCH (09:00)
[2018-07-28] MEDS: Polyethylene Glycol 3350 17 GM Packet PO SCH (09:01)
--- NOTE | 2018-07-28 10:28 | ULT ---
ULTRASOUND ABDOMEN LIMITED: (RIGHT UPPER QUADRANT) DATE: 07/28/18 HISTORY: 28-year-old male with generalized abdominal pain and abnormal CT. FINDINGS: The gallbladder has normal wall thickness and has no evidence of gallstones. There are several puncta te, mobile, nonshadowing echogenic foci in nondependent position within the lumen of the gallbladder body proximally, which probably represent tiny sludge particles. The hepatic echogenicity is normal. The right kidney has normal echogenicity and has no hydronephrosis. The pancreas is visualized, alth ough ultrasound is relatively insensitive for pancreatic pathology compared to CT and MRI. There is no biliary dilation. The common duct caliber is 2 mm. IMPRESSION: 1. Minimal amount of sludge. 2. Otherwise normal. jn 4 POS: [facility]
--- NOTE | 2018-07-28 16:20 | CON ---
DATE OF CONSULTATION: 07/28/2018 HISTORY OF PRESENT ILLNESS: Mr. Parry is a 28-year-old gentleman, who I saw in November of 2017, for urinary retention. He presented at that time with acute urinary retention. Normal urinalysis. He was managed with a Posada catheter, followed by intermittent catheterization. Since that time, he has had intermittent episodes of dysuria. It do occur approximately once or twice a month and then they resolve. At this time, it recurred and worsened to the point, he was unable to urinate. He had a Posada catheter placed in the emergency room on 07/27/2018. The catheter drained approximately [address] scan was performed demonstrating normal upper tracts and bladder. No calcifications were noted. Urinalysis was normal without any red cells, white cells, or bacteria. PAST MEDICAL HISTORY: Attention deficit disorder and substance abuse. SOCIAL HISTORY: The patient is currently residing in the [facility] for "possession." He is and has 2 children. PAST SURGICAL HISTORY: Vasectomy. He states his voiding symptoms began after he had a vasectomy. Past surgical history was also a cardiac catheterization in 2008. CHRONIC MEDICATIONS: Medicine for ADHD. ALLERGIES: ZOSYN AND VANCOMYCIN. REVIEW OF SYSTEMS: RESPIRATORY: No shortness of breath. CARDIOVASCULAR: Denies chest pain or palpitations. GASTROINTESTINAL: Denies chronic constipation or diarrhea. NEUROLOGIC: No focal findings or complaints. : Please see history of present illness. PHYSICAL EXAMINATION: GENERAL: He is awake and alert. He is in no distress. VITAL SIGNS: Blood pressure 135/82, pulse 68, and respiratory rate 18. HEENT: Normocephalic and atraumatic. NECK: Supple without masses. CHEST: Clear to auscultation. CARDIOVASCULAR: Regular rate and rhythm. ABDOMEN: Soft and nontender. No palpable masses. Liver and spleen not palpable. No abdominal tenderness. LABORATORY DATA: Creatinine 1.02. IMPRESSION: Mr. Parry is a 28-year-old gentleman, who presented with urinary retention of unclear etiology. He had an essentially identical presentation in November of 2017. At that time, he was managed with Flomax and intermittent catheterization. Intermittent catheterization because he did not tolerate the indwelling Posada well. The current indwelling Posada, he is tolerating much better. RECOMMENDATIONS: 1. Begin Flomax. 2. Posada catheter for 3 to 4 days and it can be removed for voiding trial. Job ID: [id number]
[2018-07-28] MEDS: Acetaminophen 325 MG TAB PO PRN (19:02)
[2018-07-28] MEDS: Senokot S 8.6-50 MG TAB PO SCH (20:04)
[2018-07-29] MEDS: Acetaminophen 325 MG TAB PO PRN (08:50)
[2018-07-29] MEDS: Polyethylene Glycol 3350 17 GM Packet PO SCH (08:50)
[2018-07-29] MEDS: Senokot S 8.6-50 MG TAB PO SCH (08:51)
[2018-07-29 11:45] VITALS: BP 105/71; TEMP 98.2
--- NOTE | 2018-07-29 14:14 | DIS ---
DATE OF ADMISSION: 07/28/2018 DATE OF DISCHARGE: 07/29/2018 DISCHARGE DISPOSITION: The patient is an inmate. ALLERGIES: THE PATIENT IS ALLERGIC TO ZOSYN AND VANCOMYCIN. DISCHARGE MEDICATIONS: Flomax 0.4 mg at bedtime. INPATIENT FEEDER CATCHER: Dr. Aguilar. FOLLOWUP: The patient will follow up with Dr. Aguilar after 4 to 5 days for voiding trial. The patient is currently been discharged with a Posada catheter. The patient was seen on the day of discharge. Denies any new complaints. No fever, chills, or abdominal discomfort reported. BRIEF HOSPITAL COURSE: The patient is a 28-year-old male, who presented to the hospital with urinary retention and dysuria. Please refer to the history and physical dated 28 July 2018 for further details. The patient was admitted to the hospital with a diagnosis of urinary retention. Posada catheter was placed in the emergency room. He was seen by Urology, Dr. Aguilar, who recommended to continue Posada catheter for another 3 to 4 days. Flomax has been started as well. CT scan of the abdomen and pelvis done in the emergency room was negative for obstructive uropathy. The CT scan showed moderate distention of the gallbladder. Right upper quadrant ultrasound was performed that showed minimal amount of sludge without any acute findings. The common bile duct measured 2 mm. The patient denies any nausea or vomiting. He was dehydrated on admission with lactic acid of 3.5 that has resolved. He appears stable for discharge. FINAL DIAGNOSES: 1. Urinary retention of unclear etiology. 2. Anxiety and depression without any suicidal ideation. 3. Mild intermittent asthma. 4. Attention deficit hyperactivity disorder. 5. Vancomycin and Zosyn allergy. 6. Former smoker. 7. Chronic kidney disease, stage 2. Job ID: [id number]
== END 2018-07-29 16:08 | DRG 696 ==
LOC: ERS 22:43 → EEVIPCON 22:43 → T4-B 07-28 02:46
PROVIDERS: ADMIT Internal Medicine; ATTEND Internal Medicine
PROC: 0T9B70Z Drainage of Bladder with Drainage Device, Via Natural or Artificial Opening (ICD-10-PCS; principal; 2018-07-28)
DX: R33.9 Retention of urine, unspecified (principal); F41.9 Anxiety disorder, unspecified; F32.9 Major depressive disorder, single episode, unspecified; J45.20 Mild intermittent asthma, uncomplicated; F90.9 Attention-deficit hyperactivity disorder, unspecified type; N18.2 Chronic kidney disease, stage 2 (mild); E86.0 Dehydration; Z88.1 Allergy status to other antibiotic agents; Z87.891 Personal history of nicotine dependence; Z98.890 Other specified postprocedural states
CPT/HCPCS: 36415; 51702; 74176; 76705; 80053; 81003; 83605; 85025; 87040; 87086; 96361; 96365; 96366; 96375; 99406; J1885; J1956; J2270